=== PATIENT | male | born 1980 | race Caucasian/White ===

== ENCOUNTER → 2022-04-19 | Outpatient (CLI) | payer OTHER, SELFPAY ==
--- NOTE | 2022-04-19 09:27 | RAD_ITS ---
STUDY: X-RAY - LEFT ELBOW REASON FOR EXAM: Male, 41 years old. Left elbow pain. TECHNIQUE: 3 view(s) of the elbow. COMPARISON: None. FINDINGS: Normal visualized humerus, radius and ulna. Normal radiocapitellar and ulnotrochlear articulations. The soft tissue structures are unremarkable. RAD/Elbow min 3 Views IMPRESSION: Normal x-ray examination of the elbow. Electronically Signed: Dilip Buchanan, at 10:51 EST ,
== END | disposition home or self-care (01) ==
LOC: MTRAD 09:27
PROVIDERS: PCP Family Medicine; Referring Provider Family Medicine; Visit Provider Family Medicine
DX: M25.522 Pain in left elbow (principal)
CPT/HCPCS: 73080

== ENCOUNTER → 2022-05-07 | Outpatient (CLI) | payer OTHER, SELFPAY ==
--- NOTE | 2022-05-07 09:22 | MRI_ITS ---
STUDY: MRI LEFT ELBOW REASON FOR EXAM: Male, 41 years old. Medial epicondylitis. TECHNIQUE: Standardized fat and water weighted pulse sequences were obtained in all 3 orthogonal planes. COMPARISON: Elbow x-rays dated April 19, 2022. FINDINGS: Small elbow joint effusion (coronal series 3 images 8-11). Thickening of the radial collateral ligamentous complex (coronal series 3 image 7). Intrasubstance partial tear of the proximal common extensor tendon (coronal series 3 images 5-10). Normal ulnotrochlear articulation. Normal ulnar collateral ligamentous complex. Normal common flexor tendon. The cubital tunnel is normal, with a normal ulnar nerve. Normal biceps tendon and distal insertion. Normal lacertus fibrosis. Normal brachialis musculotendinous insertion. Normal triceps tendon and teno-osseous insertion. Normal olecranon process. The visualized distal humerus, proximal radius, and ulna are normal. The visualized muscles of the distal arm and proximal forearm are normal. The soft tissue structures are unremarkable. MRI/Upper Ext Joint Only(Routine) IMPRESSION: Thickening and increased signal intensity of the radial collateral ligamentous complex. Focal intrasubstance partial tear of the proximal common extensor tendon. Small elbow joint effusion. No other abnormality present. Electronically Signed: Dilip Buchanan, at 11:15 EST ,
== END | disposition home or self-care (01) ==
LOC: MRI 07:36
PROVIDERS: PCP Family Medicine; Visit Provider Family Medicine
DX: M77.02 Medial epicondylitis, left elbow (principal)
CPT/HCPCS: 73221

== ENCOUNTER 2022-07-12 10:53 | Day surgery (SDC) | payer OTHER, SELFPAY ==
[2022-07-12] MEDS: Lactated Ringers 1,000 ML 15 ML IV (11:10)
[2022-07-12 11:26] VITALS: BP 113/64; PULSE 51; RESP 16; TEMP 36.3; O2SAT 98; BMI 27.6
--- NOTE | 2022-07-12 11:55 | HP.PCM_ITS ---
HPI - General HPI Narrative AURELIANO MCGARRY, is a 41 M who presents for a left elbow medial epicondylitis debridement and repair. Left elbow marked. No change to history and physical exam. Patient wishes to proceed. Discussed postoperative restrictions sling for 1 to 2 weeks gentle range of motion no heavy lifting follow-up in the office in 2 days time. Keep the wound clean and dry. Narcotic counseling done. MR#: [id number] Acct: [id number] Name:AURELIANO MAR Rep #: [id number] : 1980 ? ? Provider: Dr. Brendan Mena MD Age/Sex:? 41/M ? ? Location: [facility] [place] Status: Signed Intake Intake Visit Reasons:?left elbow Is patient in pain?: Yes Allergies No Known Allergies Allergy (Verified 06/16/22 08:53) Medications NK? 06/16/22 [History Confirmed 06/16/22] PFSH Medical History?(Updated 05/16/22 @ 09:12 by Brendan Mena MD) Acute otitis media, left History of broken nose Medial epicondylitis, left elbow URI (upper respiratory infection) Surgical History?(Updated 05/16/22 @ 08:47 by Angelina Morrow) History of vasectomy History of wisdom tooth extraction Family History?(Updated 05/16/22 @ 08:52 by Angelina Morrow) Father Hypertension Colon cancerGrandmother Myocardial infarctionGrandfather Myocardial infarction Social History?(Updated 05/16/22 @ 08:48 by Angelina Morrow) Smoking Status:? Never smoker alcohol intake:? current what type of physical activity do you participate in:? weight training frequency:? 3-4 times per week HPI left elbow Details: Parts of this documentation were recorded by a scribe, this documentation accurately reflects the service provided and the decisions made by me, Dr. Brendan Mena MD 06/16/22 0826. 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 Still having pain on the medial side.? Is interested to go ahead with surgery after our discussion last time.? No feelings of subluxation of the nerve no clicking of the elbow simply pain on the medial side of the elbow worse with throwing.? No numbness in the hand. Ortho Exam General General: Yes no acute distress Neurologic: Yes alert and Yes oriented x3 Psychologic: Yes reasonable and appropriate Left Elbow Skin/Wound: Yes CDI, No eccymosis, No erythema and No Swelling Test: No Valgus Stress Test, No Varus Stress Test, Yes TTP Medial Epicondyle, No TTP Lateral Epicondyle, No Pain w/ resist wrist ext, Yes Pain w/ resist wrist flex, Yes Pain w/ resist pronation, No Pain w/ resist 3rd dig ext, No Thenar Atrophy, Yes Milking Sign, No Thenar Atrophy and No Hypothenar Atrophy ROM: Yes Flexion 0-140, Supination 0-90 and Pronation 0-80 Sensation: Radial: I, Ulnar: I and Median: I Motor: Elbow Extension: 5, Elbow Flexion: 5, EPL: 5, FDP-2: 5 and 1st Dorsal Interosseous: 5 ELBOW: ulnar nerve rides up to ME but not over, no snapping. Coding Level of Care Code Off vis,est,level 3 Diagnoses Medial epicondylitis, left elbow? M77.02 Assessment and Plan Assessment and Plan (1) Medial epicondylitis, left elbow: ?Status:?Acute ?Plan: 41-year-old man with medial epicondylitis of the left elbow unresponsive to conservative management including 2 cortisone injections.? Surgical option at this point would be left elbow medial epicondyle debridement and repair.? He wishes to go ahead with this and signed consent form for surgery as well as possible need for blood products.? Explained the aftercare and postoperative restrictions as well. Pros and cons risks and benefits were discussed with the patient including but not limited to infection, pain, stiffness, bleeding, damage to surrounding structures, neurovascular injury, recurrence or retear, failure or wear of hardware or fixation, instability, fracture, deep vein thrombosis and pulmonary embolism, anesthetic risks, patient dissatisfaction, need for further surgery and other risks.? Patient understood and wished to proceed with surgery, and signed the informed consent documentation. [facility] Medical History (Updated 07/05/22 @ 11:11 by Deepa Erwin) Acute otitis media, left History of broken nose Medial epicondylitis, left elbow Non-smoker URI (upper respiratory infection) Wears contact lenses Home Medications NK 02/17/23 [History Last Taken Unknown] Allergy/AdvReac Type Severity Reaction Status Date / Time No Known Allergies Allergy Verified 07/12/22 11:16 Family History (Updated 05/16/22 @ 08:52 by Angelina Morrow) Father Hypertension Colon cancer Grandmother Myocardial infarction Grandfather Myocardial infarction Surgical History (Updated 05/16/22 @ 08:47 by Angelina Morrow) History of vasectomy History of wisdom tooth extraction Social History (Updated 05/16/22 @ 08:48 by Angelina Morrow) Smoking Status: Never smoker alcohol intake: current what type of physical activity do you participate in: weight training frequency: 3-4 times per week Vital Signs Vital Signs Vital Signs: 07/12/22 11:26 07/12/22 11:26 Temperature 97.4 F L Temperature Source Temporal Pulse Rate 51 L Respiratory Rate 16 Respiratory Pattern Normal Blood Pressure 113/64 Blood Pressure Mean 80 Blood Pressure Source Monitor Blood Pressure Position Semi-Fowlers Blood Pressure Location Right Arm Pulse Ox 98 Oxygen Delivery Method Room Air Weight Weight: 209 lb 7.026 oz Body Mass Index (BMI) 27.6
[2022-07-12] MEDS: Cefazolin 2 GM in 0.9% Normal Saline 100 ML IV (13:46)
[2022-07-12] MEDS: Bupivacaine 0.25% 30 ML Vial (14:53)
--- NOTE | 2022-07-12 15:00 | PCM.OPRPT ---
Problems Associated Problem List Diagnoses (1) Medial epicondylitis, left elbow: Report of Operation Date of Procedure: 07/12/22 Pre-Operative Diagnosis: Left elbow medial epicondylitis Post-Operative Diagnosis: Same Surgery/Procedure Performed:: Left elbow medial epicondyle debridement and repair Surgeon: Brendan Mena Type of Anesthesia: General and Local Anesthesiologist: Jac Christianson Estimated Blood Loss (mL): 30 Description of Procedure: Patient brought to the operating room theater. Placed supine on the operating room table. A general anesthesia administered. 2 g IV Ancef given prior to the start of procedure. Bed turned 90 degrees. 18 inch tourniquet applied left upper extremity appropriately padded. Arm table used. Upper extremity prepped and draped in the usual sterile fashion chlorhexidine-based prep solution allowing over 3 minutes drying time prior to draping. Preoperative timeout performed to confirm the site patient and the surgery. Began by exsanguinating the limb with a sterile Esmarch inflating the tourniquet to 250 mmHg. Shoulder in ER, elbow on sterile bumps. Made a standard curvilinear incision centered at the medial epicondyle of the elbow just anterior to this. Carried this slightly distal. Dissected down through skin and subcutaneous tissue. Identified the medial epicondyle and flexor common origin. Made a split at the mid aspect of that erring slightly anterior. Excised pathologic tissue just deep to this. Slightly elevated the common flexor origin from the medial epicondyle. Used a rongeur and rasp to stimulate healing at the medial epicondyle. I then used a drill sleeve and drill to place a Arthrex 1.8 mm knotless fiber tack anchor at the medial epicondyle. Seated this appropriately. I then used the repair stitch in a running locking fashion distal to the split apex and then back proximal passing the suture itself back through the anchor to create a knotless locking repair suture cut short. Case terminated elbow range of motion is full. Tourniquet let down thorough irrigation performed meticulous hemostasis achieved. Subcutaneous tissue closed with 2-0 Vicryl sutures and skin with 3-0 Monocryl. 10 cc quarter percent bupivacaine around the soft tissues. Elbow stable pre and postoperatively. Skin cleaned with wet and dry dressing followed by application of Steri-Strips Adaptic 4 x 4 gauze ABD dressing and Gerardo bandage with a sling for the upper extremity in a position of comfort. Patient woken up from the general anesthetic transferred off the operating room table and taken to postanesthetic care unit in stable condition. All sponge needle instrument counts were correct no complications. Plan for the patient mostly resting in a sling coming out occasionally for gentle range of motion no heavy lifting or strengthening until 6 weeks postoperatively. Follow-up in the office in 2 days time postoperative narcotic counseling given. Complications none Admit VTE Documentation VTE Present on Admission: No VTE Mechan Device Prophylaxis: SCD's Reason prophylaxis not ordered:: Treatment Not Indicated Procedures Musculoskeletal 20xxx-29xxx: Other Procedure See Report
--- NOTE | 2022-07-12 15:06 | DCINST_ITS ---
Discharge Instructions Diet Discharge Diet: No restrictions Activity Ice area for (Minutes): 10 Lifting Restrictions: gentle ROM four times per day, no lifting over 1 pound. otherwise in sling Keep extremity elevated above heart level: Operative Extremity Dressing / Incision Call your doctor if your incision/area has: Continuous Slow Oozing, Sudden Increased Bleeding, Increased Pain/ Swelling, Increased Redness, Foul Smelling Discharge and Swelling at the incision site Remove Dressing in: leave in place till F/U Follow Up Care Please Follow Up With: Brendan Mena MD When: 2 days Test Results: Test results from this visit will be discussed in further detail at your follow- up appointment, if applicable. Discharge Plan Admission Attending Provider: Brendan Mena Primary Care Provider: Hipolito Rodriguez Instructions Patient Instructions: Understanding Medial Epicondylitis Discharge Orders/Prescriptions Prescriptions: New oxycodone-acetaminophen [Percocet] 5-325 mg tablet 1 tab PO Q6H MDD 6 PRN (Reason: pain) 4 Days Qty: 20 0RF Referrals / Follow Up: Hipolito Rodriguez MD [Primary Care Provider] - Brendan Mena MD [Med Staff - Active Staff] - Disposition Disposition (needs filled in before D/C Order can be placed): Home, Self Care
[2022-07-12 15:09] VITALS: BP 106/56; BP 113/64; PULSE 71; RESP 16; TEMP 36.3; O2SAT 96
[2022-07-12 15:15] VITALS: BP 113/64; BP 113/75; PULSE 87; RESP 16; O2SAT 95
[2022-07-12 15:30] VITALS: BP 113/64; BP 128/59; PULSE 79; RESP 16; O2SAT 99
[2022-07-12 15:39] VITALS: BP 113/64; BP 116/66; PULSE 67; RESP 16; TEMP 36.2; O2SAT 98
[2022-07-12 16:06] VITALS: BP 113/64
== END 2022-07-12 16:22 | disposition home or self-care (01) ==
LOC: SDC 10:55 → AC 10:56
PROVIDERS: PCP Family Medicine; Referring Provider Orthopaedic Surgery Sports Medicine; Visit Provider Orthopaedic Surgery Sports Medicine
PROC: (CPT 24359; principal; 2022-07-12 12:30)
DX: M77.02 Medial epicondylitis, left elbow (principal); X58.XXXA Exposure to other specified factors, initial encounter
CPT/HCPCS: 24359; 01712; C1776; J7120; J2405

== ENCOUNTER 2022-09-13 09:00 | Outpatient (RCR) | payer SELFPAY, OTHER ==
--- NOTE | 2022-07-26 11:11 | HP.PTEVAL_ITS ---
Patient's Visit Information TY CHUCK MCGARRY is a 41 year old M referred to Physical Therapy by Dr. Brendan Mena MD with a diagnosis of MEDIAL EPICONDYLITIS ,LEFT ELBOW. Date of Evaluation: 07/26/22 Physical Therapist: Sumeet Blue, PT, Cert MDT, OCS - Visit Plan Frequency: 1-2x /Week Duration: 8 WEEKS Plan: S/P EPICONDLYE DEBRIDEMENT AND REPAIR. OKAY FOR ROM TO FULL ,STRENGTHENING IN 6 WEEKS. PT INTERVETIONS ROM INTIALLY ,THEN STRENGTHENING IN 6 WEEKS ELBOW/FOREARM/WRSIT ,CP/MHP AND MANUAL THERRAPY - Subjective This 41 y/o male physical therapy with medial epicondylitis left elbow. 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 Tried cortisone injection and did x-rays -. Followed up with DR Mena and did MRI showed medial tear . Thus underwent s/pleft medial epicondyle debridement and repair on 07/12/22 . Patient used sling for 2weeks removed yesterday. Seen DR yesterday start ROM with PT and no strengthening 6weeks post surgery. No pain soreness /stiffness . Mild tingling elbow. Sleeping okay at night. Patient condition affects QOL and function. Patient goals to work end of August and use left arm and reactional baseball. RTD 08/22/22. SOCAIL: . 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 NEURO: denies paresthesia/tingling. INSCION : well approximate. AROM: elbow flexion 4 -145 degrees ,wrist flexion extension 50 degrees ,flexion 70 degrees ,supination 75 degrees ,pronation 90 degrees. 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 MMT: ( peak force) wrist flexion 3.0 ,wrist extension 9.3 ,wrist supination 2.1 ,pronation 8.3 - Balance/Special Test Scores Quick DASH Score: 57.5000 - Goals Goal 1:: Patient to be I with HEP ELBOW Goal Time Frame: 6-8 Weeks Goal 2:: Patient to demonstrate 75% improvement with elbow to return to prior level of function and activity Goal Time Frame: 6-8 Weeks Goal 3:: Patient to improve AROM elbow/wrist flexion/extension to WNL return to prior level of function Goal Time Frame: 6-8 Weeks Goal 4:: Patient to increase peak force elbow/wrist /forearm flexion/extension by 10-15 to improve function. 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 Rehabilitation Potential: Good - Anticipated Interventions Patient/Client Instruction: Educate patient on: Condition, Plan of Care For the Purpose of:: To decrease pain, To increase ROM, To improve nutrient delivery to tissue, To increase oxygenation perfusion, To improve ability of physical actions for home/community/work/leisure, To improve gait and locomotor functions, To improve health of tissue, To increase flexibility/ROM, To improve tolerance to ADL's Therapeutic Exercise to Include: Strength training, Flexibilty training, Passive ROM, Active ROM Comment: ELBOW/WRIST/FOREARM For the Purpose of:: To decrease pain, To increase ROM, To improve muscle performance and motor function, To improve ability to perform ADL's, To increase tolerance to activity/condition/position, To improve ability of physical actions for home/community/work/leisure, To improve health of tissue, To decrease soft tissue restriction, To increase flexibility/ROM For the Purpose of:: To decrease pain, To increase ROM, To improve nutrient delivery to tissue, To increase oxygenation perfusion Thank you for the opportunity to evaluate your patient. For Medicare and Medicare HMO plans, please review the plan of care and approve it. It will need to be FAXED BACK to us at [phone] for Medicare purposes. For Medicare only, by signing this I certify the plan of care. Please let me know if there are questions or concerns regarding this plan of care. Physician Signature: Date:
--- NOTE | 2022-07-26 11:16 | HP.PTEVAL ---
Patient's Visit Information TY CHUCK MCGARRY is a 41 year old M referred to Physical Therapy by Dr. Brendan Mena MD with a diagnosis of MEDIAL EPICONDYLITIS ,LEFT ELBOW. Date of Evaluation: 07/26/22 Physical Therapist: Sumeet Blue, PT, Cert MDT, OCS - Visit Plan Frequency: 1-2x /Week Duration: 8 WEEKS Plan: S/P EPICONDLYE DEBRIDEMENT AND REPAIR. OKAY FOR ROM TO FULL ,STRENGTHENING IN 6 WEEKS POST OP. PT INTERVETIONS ROM INTIALLY ,THEN STRENGTHENING IN 6 WEEKS POST OP ELBOW/FOREARM/WRSIT ,CP/MHP AND MANUAL THERRAPY - Subjective This 41 y/o male physical therapy with medial epicondylitis left elbow. 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 Tried cortisone injection and did x-rays -. Followed up with DR Mena and did MRI showed medial tear . Thus underwent s/pleft medial epicondyle debridement and repair on 07/12/22 . Patient used sling for 2weeks removed yesterday. Seen DR yesterday start ROM with PT and no strengthening 6weeks post surgery. No pain soreness /stiffness . Mild tingling elbow. Sleeping okay at night. Patient condition affects QOL and function. Patient goals to work end of August and use left arm and reactional baseball. RTD 08/22/22. SOCAIL: . 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 NEURO: denies paresthesia/tingling. INSCION : well approximate. AROM: elbow flexion 4 -145 degrees ,wrist flexion extension 50 degrees ,flexion 70 degrees ,supination 75 degrees ,pronation 90 degrees. 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 MMT: ( peak force) wrist flexion 3.0 ,wrist extension 9.3 ,wrist supination 2.1 ,pronation 8.3 - Balance/Special Test Scores Quick DASH Score: 57.5000 - Goals Goal 1:: Patient to be I with HEP ELBOW Goal Time Frame: 6-8 Weeks Goal 2:: Patient to demonstrate 75% improvement with elbow to return to prior level of function and activity Goal Time Frame: 6-8 Weeks Goal 3:: Patient to improve AROM elbow/wrist flexion/extension to WNL return to prior level of function Goal Time Frame: 6-8 Weeks Goal 4:: Patient to increase peak force elbow/wrist /forearm flexion/extension by 10-15 to improve function. 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 Rehabilitation Potential: Good - Anticipated Interventions Patient/Client Instruction: Educate patient on: Condition, Plan of Care For the Purpose of:: To decrease pain, To increase ROM, To improve nutrient delivery to tissue, To increase oxygenation perfusion, To improve ability of physical actions for home/community/work/leisure, To improve gait and locomotor functions, To improve health of tissue, To increase flexibility/ROM, To improve tolerance to ADL's Therapeutic Exercise to Include: Strength training, Flexibilty training, Passive ROM, Active ROM Comment: ELBOW/WRIST/FOREARM For the Purpose of:: To decrease pain, To increase ROM, To improve muscle performance and motor function, To improve ability to perform ADL's, To increase tolerance to activity/condition/position, To improve ability of physical actions for home/community/work/leisure, To improve health of tissue, To decrease soft tissue restriction, To increase flexibility/ROM For the Purpose of:: To decrease pain, To increase ROM, To improve nutrient delivery to tissue, To increase oxygenation perfusion Thank you for the opportunity to evaluate your patient. For Medicare and Medicare HMO plans, please review the plan of care and approve it. It will need to be FAXED BACK to us at [phone] for Medicare purposes. For Medicare only, by signing this I certify the plan of care. Please let me know if there are questions or concerns regarding this plan of care. Physician Signature: Date:
--- NOTE | 2022-10-04 09:05 | HP.PTDCSUM_ITS ---
It has been my pleasure to treat AURELIANO MCGARRY referred by Dr. Brendan Mena MD, with the diagnosis of MEDIAL EPICONDYLITIS ,LEFT ELBOW for a total of 8 visit(s). Discharge Date: Please see the following information for a summary of their discharge status. Subjective: Doing well Left Elbow Pain Intensity (Out of 10): 0 % Improvement: 80 Objective/Function: POSTURE: WFL. PALAPTION: unremarkable. NEURO: intact. AROM: elbow flexion/extension 0-140 degrees ,wrist flexion/extension 90. 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 MMT:good strength elbow/wrsit Goal 1:: Patient to be I with HEP ELBOW Goal Progress: Goal Met Goal 2:: Patient to demonstrate 75% improvement with elbow to return to prior level of function and activity Goal Progress: Goal Met Goal 3:: Patient to improve AROM elbow/wrist flexion/extension to WNL return to prior level of function Goal Progress: Goal Met Goal 4:: Patient to increase peak force elbow/wrist /forearm flexion/extension by 10-15 to improve function. Goal Progress: Goal Met Goal 5:: Patient to improve quick dash by 10 points to improve QOL and function return to prior level of activity Goal Progress: Goal Met Plan: D/C If there are questions or concerns regarding this patient's physical therapy, please feel free to call me at [phone]. Thank you for the referral of this patient. Sincerely, Sumeet Blue, PT, Cert MDT, OCS Balance/Gait/Functional tests - Balance/Special Test Scores Quick DASH Score: 6.8175
== END 2022-09-13 19:00 | disposition home or self-care (01) ==
LOC: PT 09:00
PROVIDERS: PCP Family Medicine; Referring Provider Orthopaedic Surgery Sports Medicine; Visit Provider Orthopaedic Surgery Sports Medicine
DX: M77.02 Medial epicondylitis, left elbow (principal)
CPT/HCPCS: 97110; 97161

== ENCOUNTER 2023-02-08 12:30 | Outpatient (RCR) | payer OTHER, SELFPAY ==
--- NOTE | 2023-01-09 13:01 | HP.PTEVAL_ITS ---
Patient's Visit Information Visit Information Visit Information: AURELIANO MCGARRY is a 42 year old M referred to Physical Therapy by Dr. Hipolito Rodriguez MD with a diagnosis of L achilles tendoinitis and R RTC tendonitis. Date of Evaluation: 01/09/23 Physical Therapist: Jac Smith, FAYET, OCS, CSCS Visit Plan Frequency: 3x /Week Duration: 4-6 Weeks Plan: 3x/week for 2-4 weeks then weekly x 2 weeks for 1. REST from aggravaitng activities at home 2. US nonthermal to R RC adn L achilles insertion. 3. Rollout and stretch L gastroc soleus. 4. Progression of aggressive RC strength in 90 degrees abduction with band and prone with Ts and Ys Slow progression to running for achilles and of throwing for R arm with baseball specific activities. Subjective Subjective: L achilles heel hurts at attachment. Plays baseball and 4+ innings start hurting and tightening and aching. has us, tens, massage and head and stretching. Its been hurting a month ago and a little better with rest. Got cream from doctor. Achilles pain is mild 1/10 but has been avoiding cardio and running. R shoulder hurts especially with push ups with hands close together, bench press can hurt with arms in. 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 works out 4-5 days per week with HIIT, Lower body, rested upper body last week. Lifted Upper body yesterday and felt the same. Throwing sometimes bothers it. pain is anterior R shoulder and 2/10 with workout. Feels fine at rest. Will play 90 innings in [facility] in January baseball. 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 Objective Objective: Posture is forward head but otherwise in good shape and appears healthy. R shoulder tender slightly at supra insertion and subscap but minimal. end range external rotationslightly painful. resisted rotations er>IR slightly pa inful and moreso in 90. otherwise good and strong at 5/5 wrist and elbow and shoulder elevation./abd without pain B. - HK, - neer, - ext rotation lag test, - drop arm. L LEg: No tenderness or pain to palpation, gastroc and soleus mildly tight B at 0 DF PRM and AROM. 5/5 strength ankles, Sensation UE adn LE WNL to gross light touch. reflexes 1/3 patella and achilles Balance/Special Test Scores Lower Extremity Functional Score: 59 Goals Goal 1:: painfree for one week Goal Time Frame: 2-4 Weeks Goal 2:: pt I in appropriate HEP of ecc heel, gastroc stretches with rollout, RC strength adn resume running and throwing without pain. Goal Time Frame: 4-6 Weeks Goal 3:: Reeady to play full week of baseball On february 17 Goal Time Frame: 4-6 Weeks Rehabilitation Potential Physical Therapy Diagnosis: L achilles and R RC tendonitis mildly. pt needs to play lots of baseball and is appropriate to ramp up to this over the next month. Rehabilitation Potential: Good Anticipated Interventions Patient/Client Instruction: Educate patient on: Condition and Plan of Care For the Purpose of:: To decrease pain, To decrease swelling/inflammation, To improve nutrient delivery to tissue, To improve muscle performance and motor function, To improve ability of physical actions for home/community/work/leisure and To improve gait and locomotor functions Therapeutic Exercise to Include: Strength training, Postural training, Flexibilty training and Scapular Strength/Stabilization For the Purpose of:: To decrease pain, To improve nutrient delivery to tissue, To improve muscle performance and motor function, To increase tolerance to activity/condition/position and To improve ability of physical actions for home/community/work/leisure Manual Therapy Techniques to Include: Mobilization, Passive ROM and Soft tissue mobilization For the Purpose of:: To increase ROM, To improve nutrient delivery to tissue, To increase tolerance to activity/condition/position and To improve ability of physical actions for home/community/work/leisure Ultrasound (thermal/non thermal): Yes (nonthermal) For the Purpose of:: To decrease pain and To decrease swelling/inflammation Text: Thank you for the opportunity to evaluate your patient. For Medicare and Medicare HMO plans, please review the plan of care and approve it. It will need to be FAXED BACK to us at [phone] for Medicare purposes. For Medicare only, by signing this I certify the plan of care. Please let me know if there are questions or concerns regarding this plan of care. Physician Signature: Date:
--- NOTE | 2023-02-08 12:58 | HP.PTDCSUM_ITS ---
Discharge Summary D/C summary: It has been my pleasure to treat AURELIANO MCGARRY referred by Dr. Hipolito Rodriguez MD, with the diagnosis of L achilles tendoinitis and R RTC tendonitis for a total of 10 visit(s). Discharge Date: 02/08/23 Please see the following information for a summary of their discharge status. Subjective Subjective: Doing well, had a great running and throwing workout tomorrow . Leaves for [facility] tournament tomorrow to play alot of games and is confident. Pain R: Pain Intensity (Out of 10): 0 Overall Improvement % Improvement: 100 Objective Objective/Function: no tenderness or knots today in calf or at insertion. subjectively ready to go and will play baseball in [facility] next two weeks and call doctor if problems. Goals Goal 1:: painfree for one week Goal Progress: Goal Met Goal 2:: pt I in appropriate HEP of ecc heel, gastroc stretches with rollout, RC strength adn resume running and throwing without pain. Goal Progress: Goal Met Goal 3:: Reeady to play full week of baseball On february 17 Goal Progress: Goal Met Plan Plan: d/c, to cotninue eccentrics, stretch gastroc soleus and throwers TEN shoulder exercises. D/C Information d/c sentence: If there are questions or concerns regarding this patient's physical therapy, please feel free to call me at [phone]. Thank you for the referral of this patient. Sincerely, Jac Smith, DPT, OCS, CSCS Balance/Gait/Functional tests Balance/Special Test Scores Lower Extremity Functional Score: 80 Improvement % Improvement: 100
== END 2023-02-08 14:16 | disposition home or self-care (01) ==
LOC: PT 12:30
PROVIDERS: PCP Family Medicine; Visit Provider Family Medicine
DX: M76.62 Achilles tendinitis, left leg (principal); M77.8 Other enthesopathies, not elsewhere classified
CPT/HCPCS: 97035; 97110; 97140; 97162